=== PATIENT | male | born 1985 | race Caucasian/White ===

== ENCOUNTER → 2017-01-19 | Outpatient (CLI) | payer OTHER | LOC: MRI 12-12 09:45 → CT 12-12 10:30 | DX: M54.5 Low back pain (principal); M06.9 Rheumatoid arthritis, unspecified; B19.20 Unspecified viral hepatitis C without hepatic coma; F41.9 Anxiety disorder, unspecified; M47.816 Spondylosis without myelopathy or radiculopathy, lumbar region | CPT/HCPCS: 72131 ==

== ENCOUNTER → 2020-11-08 | Outpatient (CLI) | payer OTHER ==
[~2020-11-08] MED LIST: AUGMENTIN 875-1 EACH PO; FLONASE 0.05% N16 GM; IBUPROFEN600 MG PO; NORCO 5-325 TA1 EACH PO; PERCOCET 5-3251 EACH PO; ZYRTEC10 MG PO
== END ==
LOC: KOH-I 08:29
DX: M54.2 Cervicalgia (principal); M54.9 Dorsalgia, unspecified; R05 Cough
CPT/HCPCS: 71046; 72050; 72070; 72100

== ENCOUNTER → 2021-05-17 | Outpatient (CLI) | payer OTHER | LOC: LAB 23:31 | DX: Z02.83 Encounter for blood-alcohol and blood-drug test (principal) | CPT/HCPCS: 36415 ==

== ENCOUNTER 2022-04-27 13:14 | Emergency (ER) | payer OTHER | END 2022-04-27 15:10 | disposition home or self-care (01) | LOC: ER1 13:14 | DX: S16.1XXA Strain of muscle, fascia and tendon at neck level, initial encounter (principal); F17.200 Nicotine dependence, unspecified, uncomplicated; Z88.8 Allergy status to other drugs, medicaments and biological substances; X58.XXXA Exposure to other specified factors, initial encounter | CPT/HCPCS: 96372; 99283; J1885 ==

== ENCOUNTER → 2022-04-28 | Outpatient (CLI) | payer OTHER | LOC: KOH-I 15:51 | DX: M54.2 Cervicalgia (principal); M54.50 Low back pain, unspecified; M54.6 Pain in thoracic spine; R05.9 Cough, unspecified; M47.812 Spondylosis without myelopathy or radiculopathy, cervical region; M47.814 Spondylosis without myelopathy or radiculopathy, thoracic region | CPT/HCPCS: 71046; 72040; 72070; 72100 ==

== ENCOUNTER 2022-05-25 22:22 | Emergency (ER) | payer OTHER ==
[2022-05-26] MEDS ORDERED: BACTRIM DS TAB1 EACH PO (02:42)
[2022-05-26] MEDS ORDERED: CEPHALEXIN500 M1 PO (02:42)
[2022-05-26] MEDS ORDERED: BACTROBAN OINT22 GM TOP (02:42)
== END 2022-05-26 02:52 | disposition home or self-care (01) ==
LOC: ER1 22:22
DX: L02.811 Cutaneous abscess of head [any part, except face] (principal); L02.411 Cutaneous abscess of right axilla; J45.909 Unspecified asthma, uncomplicated; F17.220 Nicotine dependence, chewing tobacco, uncomplicated; Z88.8 Allergy status to other drugs, medicaments and biological substances
CPT/HCPCS: 10061; 99282